=== PATIENT | female | born 1950 | race African-American/Black ===

== ENCOUNTER 2017-02-09 14:28 | Inpatient (IN) | payer MEDICARE ==
[~2017-02-09] VITALS: Ht 160 cm; Wt 73.9 kg
[~2017-02-09 14:28] MED LIST: CINA30 PO; ELIQUIS PO; MORP15TA67 PO; RENA VITE PO; ZEPATIER PO
[2017-02-09] MEDS ORDERED: SODIUM CHLORIDE 0.9% 500 ML IV ONE (15:43)
[2017-02-09] MEDS ORDERED: ONDANSETRON HCL 4MG/2ML VIAL IV STA (15:43)
[2017-02-09 16:08] LABS: BASOPHILS % 1.2 % (0.0-2.0); EOSINOPHILS % 0.1 % (0.0-5.0); HEMOGLOBIN. 11.6 g/dL (12.0-16.0); LYMPHOCYTES % 9.7 % (20.0-50.0); MEAN CORPUSCULAR HEMOGLOBIN 28.8 pg (28.0-32.0); MEAN CORPUSCULAR HGB CONC 33.2 g/dL (31.0-37.0); MEAN CORPUSCULAR VOLUME 86.6 fL (81.0-99.0); MEAN PLATELET VOLUME 6.7 fl (7.4-10.4); MONOCYTES % 7.7 % (2.0-8.0); NEUTROPHILS % 81.3 % (40.0-76.0); PLATELET 342 x1000/uL (130-400); RED BLOOD CELL COUNT 4.05 mill/uL (4.2-5.4); RED CELL DISTRIBUTION WIDTH 16.5 % (11.6-14.6); WHITE BLOOD COUNT 7.6 x1000/uL (4.5-11.0)
[2017-02-09 16:14] LABS: INR 1.1; PARTIAL THROMBOPLASTIN TIME 26.8 sec (24.0-34.0); PROTHROMBIN TIME 11.9 sec
[2017-02-09 16:19] LABS: ALANINE AMINOTRANSFERASE 14 IU/L (13-61); ALBUMIN 2.2 g/dL (3.4-5.0); ANION GAP 20; CALCIUM 9.3 mg/dL (8.5-10.1); CARBON DIOXIDE 35 mEq/L (21-32); CHLORIDE 89 mEq/L (98-107); INDEX HEMOLYSI 1 (1-3); INDEX ICTERIC 1 (1-4); INDEX LIPEMIC 1 (1-3); LIPASE 72 IU/L (73-393); MAGNESIUM 2.4 mg/dL (1.8-2.4); PHOSPHORUS 5.4 mg/dL (2.5-4.9); UREA NITROGEN BLOOD 44 mg/dL (7-21); eGFR 5 mL/min (>60)
[2017-02-09 16:22] LABS: TROPONIN I < 0.02 ng/mL (0.00-0.04)
[2017-02-09] MEDS ORDERED: MORPHINE SULFATE 4 MG/ML CPJ (NOT FOR IM USE) IV ONE (16:30)
[2017-02-09] MEDS ORDERED: FAMOTIDINE 20MG/2ML VIAL IV ONE (16:30)
[2017-02-09 16:42] LABS: BG CARBOXYHEMOGLOBIN 0.9 % (0.5-1.5); BG DEOXYHEMOGLOBIN 2.6 % (0.0-5.0); BG HCO3 ACT 34.8 mmol/L (22.0-26.0); BG METHEMOGLOBIN 0.3 % (0.0-1.5); BG OXYGEN SATURATION 97.4 % (92.0-98.5); BG OXYHEMOGLOBIN 96.2 % (94.0-97.0); BG PCO2 46.8 mmHg (35.0-45.0); BG PH 7.489 (7.350-7.450); BG PO2 94.8 mmHg (75.0-100.0); BG SAMPLE SITE LEFT RADIAL; BG TOTAL HEMOGLOBIN 14.8 g/dL (12.0-18.0); BG VENT MODE NASAL CANNULA
[2017-02-09 20:30] VITALS: BP 97/60
[2017-02-09 22:00] VITALS: BP 97/60
[2017-02-09] MEDS ORDERED: METO25TA6 PO (22:54)
[2017-02-09] MEDS ORDERED: MORPHINE SULFATE 15MG TABLET SR PO PRN (23:30)
[2017-02-09] MEDS ORDERED: HYDROCODONE/ACETAMINOPHEN 5/325MG TABLET PO PRN (23:30)
[2017-02-10 00:15] VITALS: BP 94/57
[2017-02-10 04:00] VITALS: BP 131/88
[2017-02-10] MEDS: ONDANSETRON HCL 4MG/2ML VIAL IV PRN ×2 (05:38→11:27)
[2017-02-10 08:00] VITALS: BP 80/56
[2017-02-10] MEDS ORDERED: APIXABAN 5 MG TABLET PO SCH (09:00)
[2017-02-10] MEDS ORDERED: OMEPRAZOLE 20MG CAPSULE EXTENDED RELEASE PO SCH (09:00)
[2017-02-10] MEDS: METOPROLOL TARTRATE 25MG TABLET PO SCH ×2 (09:00→21:00)
[2017-02-10] MEDS ORDERED: MORPHINE SULFATE 15MG TABLET SR PO PRN (09:00)
[2017-02-10] MEDS ORDERED: ZEPATIER PO SCH (09:00)
[2017-02-10] MEDS: POLYETHYLENE GLYCOL 3350 (17GM) 1 DOSE PACK PO SCH (09:51)
[2017-02-10] MEDS: DOCUSATE SODIUM 100MG CAPSULE PO SCH ×2 (09:52→18:03)
[2017-02-10] MEDS: APIXABAN 2.5 MG TABLET PO SCH ×2 (09:53→18:03)
[2017-02-10] MEDS: FOLIC ACID/VITAMIN B COMP W-C TABLET PO SCH (09:54)
[2017-02-10 12:00] VITALS: BP 87/51
[2017-02-10] MEDS: METOCLOPRAMIDE HCL 10MG/2ML VIAL IV SCH ×2 (15:58→20:48)
[2017-02-10 16:00] VITALS: BP 148/91
[2017-02-10 20:00] VITALS: BP 104/62
[2017-02-10] MEDS: PANTOPRAZOLE SODIUM 40 MG/VIAL IV SCH (20:48)
[2017-02-11] VITALS: BP 131/75
[2017-02-11] MEDS ORDERED: ZEPATIER PO (02:57)
[2017-02-11] MEDS ORDERED: CINA30 PO (02:57)
[2017-02-11 04:00] VITALS: BP 126/71
[2017-02-11] MEDS: METOCLOPRAMIDE HCL 10MG/2ML VIAL IV SCH ×4 (06:47→20:01)
[2017-02-11 07:21] LABS: HEMATOCRIT. 31.4 % (36.0-48.0); HEMOGLOBIN. 10.3 g/dL (12.0-16.0); MEAN CORPUSCULAR HEMOGLOBIN 28.9 pg (28.0-32.0); MEAN CORPUSCULAR HGB CONC 32.8 g/dL (31.0-37.0); MEAN PLATELET VOLUME 7.3 fl (7.4-10.4); PLATELET 256 x1000/uL (130-400); RED BLOOD CELL COUNT 3.57 mill/uL (4.2-5.4); RED CELL DISTRIBUTION WIDTH 16.8 % (11.6-14.6); WHITE BLOOD COUNT 6.3 x1000/uL (4.5-11.0)
[2017-02-11 07:24] LABS: CHLORIDE 97 mEq/L (98-107); INDEX HEMOLYSI 1 (1-3); INDEX ICTERIC 1 (1-4); INDEX LIPEMIC 1 (1-3)
[2017-02-11 07:29] LABS: ALANINE AMINOTRANSFERASE 12 IU/L (13-61); ALBUMIN 2.1 g/dL (3.4-5.0); ANION GAP 21; CALCIUM 9.2 mg/dL (8.5-10.1); CARBON DIOXIDE 28 mEq/L (21-32); PHOSPHORUS 4.7 mg/dL (2.5-4.9); UREA NITROGEN BLOOD 33 mg/dL (7-21); eGFR 6 mL/min (>60)
[2017-02-11 07:52] LABS: DIFFERENTIAL COMMENT 1
[2017-02-11 08:00] VITALS: BP 117/66
[2017-02-11] MEDS: PANTOPRAZOLE SODIUM 40 MG/VIAL IV SCH ×2 (08:58→20:01)
[2017-02-11] MEDS: METOPROLOL TARTRATE 25MG TABLET PO SCH ×2 (09:00→20:03)
[2017-02-11] MEDS: DOCUSATE SODIUM 100MG CAPSULE PO SCH ×2 (09:00→17:00)
[2017-02-11] MEDS: APIXABAN 2.5 MG TABLET PO SCH (09:00)
[2017-02-11] MEDS: FOLIC ACID/VITAMIN B COMP W-C TABLET PO SCH ×2 (09:00→09:30)
[2017-02-11] MEDS: POLYETHYLENE GLYCOL 3350 (17GM) 1 DOSE PACK PO SCH ×3 (09:00→17:00)
[2017-02-11 09:03] LABS: ANISOCYTOSIS 1+; PLATELET ESTIMATE NORMAL
[2017-02-11] MEDS ORDERED: BISACODYL 10MG SUPP PR SCH (09:45)
[2017-02-11 12:00] VITALS: BP 114/62
[2017-02-11] MEDS ORDERED: SIMETHICONE 40 MG/0.6 ML 30ML ONE ×2 (13:48→14:27)
[2017-02-11] MEDS ORDERED: SODIUM CHLORIDE 0.9% 10ML VIAL ONE (13:48)
[2017-02-11] MEDS ORDERED: FENTANYL CITRATE/PF 50MCG/ML 2ML VIAL ONE (14:28)
[2017-02-11] MEDS ORDERED: MIDAZOLAM HCL 5 MG/5 ML VIAL ONE (14:29)
[2017-02-11] MEDS ORDERED: MIDAZOLAM HCL 2 MG/2 ML VIAL IV PRN (15:18)
[2017-02-11] MEDS ORDERED: FENTANYL CITRATE/PF 50MCG/ML 2ML VIAL IV PRN (15:18)
[2017-02-11 16:00] VITALS: BP 108/62
[2017-02-11] MEDS ORDERED: DIATR MEGLU/DIATRIZOATE SOLN 30ML PO NR (16:45)
[2017-02-11 20:00] VITALS: BP 140/96
[2017-02-11] MEDS: ONDANSETRON HCL 4MG/2ML VIAL IV PRN (20:01)
[2017-02-12 05:00] VITALS: BP 143/73
[2017-02-12 05:52] LABS: HEMATOCRIT. 30.1 % (36.0-48.0); HEMOGLOBIN. 9.9 g/dL (12.0-16.0); MEAN CORPUSCULAR HEMOGLOBIN 28.5 pg (28.0-32.0); MEAN CORPUSCULAR HGB CONC 32.8 g/dL (31.0-37.0); MEAN CORPUSCULAR VOLUME 86.8 fL (81.0-99.0); PLATELET 290 x1000/uL (130-400); RED BLOOD CELL COUNT 3.47 mill/uL (4.2-5.4); RED CELL DISTRIBUTION WIDTH 16.5 % (11.6-14.6); WHITE BLOOD COUNT 4.9 x1000/uL (4.5-11.0)
[2017-02-12 05:57] LABS: CALCIUM 9.2 mg/dL (8.5-10.1); MAGNESIUM 2.7 mg/dL (1.8-2.4); PHOSPHORUS 5.2 mg/dL (2.5-4.9)
[2017-02-12 06:22] LABS: DIFFERENTIAL COMMENT 1
[2017-02-12] MEDS: METOCLOPRAMIDE HCL 10MG/2ML VIAL IV SCH ×4 (06:59→21:21)
[2017-02-12 08:00] VITALS: BP 128/68
[2017-02-12] MEDS ORDERED: BISACODYL 10MG SUPP PR NR (08:15)
[2017-02-12] MEDS: ONDANSETRON HCL 4MG/2ML VIAL IV PRN (09:14)
[2017-02-12 10:29] LABS: ANISOCYTOSIS 1+; PLATELET ESTIMATE NORMAL
[2017-02-12 12:00] VITALS: BP 98/69
[2017-02-12] MEDS: POLYETHYLENE GLYCOL 3350 (17GM) 1 DOSE PACK PO SCH ×2 (12:00→17:39)
[2017-02-12] MEDS: PANTOPRAZOLE SODIUM 40 MG/VIAL IV SCH ×2 (12:00→21:21)
[2017-02-12] MEDS: SUCRALFATE 1G TABLET PO SCH ×4 (12:00→21:21)
[2017-02-12] MEDS: METOPROLOL TARTRATE 25MG TABLET PO SCH ×2 (12:00→21:00)
[2017-02-12] MEDS: DOCUSATE SODIUM 100MG CAPSULE PO SCH ×2 (12:00→17:39)
[2017-02-12 16:00] VITALS: BP 88/50
[2017-02-12 20:00] VITALS: BP 102/72
[2017-02-13] VITALS: BP 109/55
[2017-02-13 04:00] VITALS: BP 101/63
[2017-02-13] MEDS: SUCRALFATE 1G TABLET PO SCH ×3 (06:45→17:45)
[2017-02-13] MEDS: METOCLOPRAMIDE HCL 10MG/2ML VIAL IV SCH ×4 (06:45→21:40)
[2017-02-13 06:54] LABS: HEMATOCRIT. 31.7 % (36.0-48.0); HEMOGLOBIN. 10.2 g/dL (12.0-16.0); MEAN CORPUSCULAR HEMOGLOBIN 28.4 pg (28.0-32.0); MEAN CORPUSCULAR HGB CONC 32.3 g/dL (31.0-37.0); MEAN CORPUSCULAR VOLUME 88.1 fL (81.0-99.0); PLATELET 270 x1000/uL (130-400); RED CELL DISTRIBUTION WIDTH 16.6 % (11.6-14.6); WHITE BLOOD COUNT 5.2 x1000/uL (4.5-11.0)
[2017-02-13 07:41] LABS: DIFFERENTIAL COMMENT 1
[2017-02-13 07:50] LABS: CALCIUM 9.5 mg/dL (8.5-10.1); PHOSPHORUS 4.5 mg/dL (2.5-4.9)
[2017-02-13 08:00] VITALS: BP 102/60
[2017-02-13] MEDS: FOLIC ACID/VITAMIN B COMP W-C TABLET PO SCH (08:18)
[2017-02-13] MEDS: DOCUSATE SODIUM 100MG CAPSULE PO SCH (08:18)
[2017-02-13] MEDS: PANTOPRAZOLE SODIUM 40 MG/VIAL IV SCH ×2 (08:18→21:39)
[2017-02-13] MEDS: POLYETHYLENE GLYCOL 3350 (17GM) 1 DOSE PACK PO SCH ×2 (08:19→17:45)
[2017-02-13] MEDS: METOPROLOL TARTRATE 25MG TABLET PO SCH ×2 (09:00→21:00)
[2017-02-13 10:29] LABS: ANISOCYTOSIS 1+; PLATELET ESTIMATE NORMAL
[2017-02-13 12:00] VITALS: BP 100/61
[2017-02-13] MEDS ORDERED: MORPHINE SULFATE 15MG TABLET SR PO PRN (15:00)
[2017-02-13 16:00] VITALS: BP 110/49
[2017-02-13 20:00] VITALS: BP 97/68
[2017-02-13] MEDS: SUCRALFATE 1 G/10 ML UDC PO SCH (21:40)
[2017-02-14 00:46] VITALS: BP 99/63
[2017-02-14 04:00] VITALS: BP 112/74
[2017-02-14] MEDS: METOCLOPRAMIDE HCL 10MG/2ML VIAL IV SCH ×2 (06:22→12:23)
[2017-02-14] MEDS: SUCRALFATE 1 G/10 ML UDC PO SCH ×2 (06:22→12:20)
[2017-02-14 08:00] VITALS: BP_SYST 110; BP_SYST 112; BP_DIAS 65; BP_DIAS 74
[2017-02-14] MEDS: PANTOPRAZOLE SODIUM 40 MG/VIAL IV SCH (08:35)
[2017-02-14] MEDS: POLYETHYLENE GLYCOL 3350 (17GM) 1 DOSE PACK PO SCH (08:35)
[2017-02-14] MEDS: METOPROLOL TARTRATE 25MG TABLET PO SCH (08:36)
[2017-02-14 12:00] VITALS: BP 104/72
[2017-02-14 15:50] VITALS: BP 100/68
== END 2017-02-14 17:10 | disposition home or self-care (01) | DRG 754 ==
LOC: ER 15:08 → 6WST 17:05
PROVIDERS: ADMIT Internal Medicine Nephrology; ATTEND Internal Medicine Nephrology
PROC: 5A1D60Z (ICD-10-PCS; principal; 2017-02-10)
PROC: 0DB68ZX Excision of Stomach, Via Natural or Artificial Opening Endoscopic, Diagnostic (ICD-10-PCS; 2017-02-11)
DX: C56.9 Malignant neoplasm of unspecified ovary (principal); N18.6 End stage renal disease; E43 Unspecified severe protein-calorie malnutrition; I26.99 Other pulmonary embolism without acute cor pulmonale; K22.10 Ulcer of esophagus without bleeding; I13.11 Hypertensive heart and chronic kidney disease without heart failure, with stage 5 chronic kidney disease, or end stage renal disease; E87.3 Alkalosis; I82.401 Acute embolism and thrombosis of unspecified deep veins of right lower extremity; R18.8 Other ascites; J98.11 Atelectasis; K56.60 Unspecified intestinal obstruction; N25.81 Secondary hyperparathyroidism of renal origin; K56.7 Ileus, unspecified; N17.9 Acute kidney failure, unspecified; E87.5 Hyperkalemia; E83.39 Other disorders of phosphorus metabolism; B19.20 Unspecified viral hepatitis C without hepatic coma; I51.7 Cardiomegaly; R16.0 Hepatomegaly, not elsewhere classified; K21.0 Gastro-esophageal reflux disease with esophagitis; D64.9 Anemia, unspecified; Z66 Do not resuscitate; J30.9 Allergic rhinitis, unspecified; K29.70 Gastritis, unspecified, without bleeding; G89.29 Other chronic pain; K44.9 Diaphragmatic hernia without obstruction or gangrene; Z86.010 Personal history of colon polyps; Z86.711 Personal history of pulmonary embolism; Z68.28 Body mass index [BMI] 28.0-28.9, adult; Z99.2 Dependence on renal dialysis; Z93.6 Other artificial openings of urinary tract status; Z90.5 Acquired absence of kidney; Z90.49 Acquired absence of other specified parts of digestive tract; Z80.0 Family history of malignant neoplasm of digestive organs; Z79.899 Other long term (current) drug therapy; Z80.1 Family history of malignant neoplasm of trachea, bronchus and lung; Z82.49 Family history of ischemic heart disease and other diseases of the circulatory system; Z83.3 Family history of diabetes mellitus; Z91.14 Patient's other noncompliance with medication regimen
CPT/HCPCS: 36415; 36600; 74022; 74176; 80048; 80053; 82375; 82805; 82962; 83690; 83735; 84100; 84484; 85025; 85610; 85730; 88305; 88312; 88313; 93005; 93970; 96361; 96374; 96375; 97162; 97535; 99285; A4216; C9113; J2250; J2270; J2405; J2765; J3010; J3490; J7040; Q9963